=== PATIENT | female | born 1985 | race Caucasian/White ===

== ENCOUNTER → 2016-11-21 | Outpatient (CLI) | payer OTHER ==
--- NOTE | 2016-11-21 09:08 | CT ---
EXAMINATION TYPE: CT brain wo/w con DATE OF EXAM: 11/21/2016 9:00 AM COMPARISON: NONE HISTORY: Patient is having chronic left side headaches for two weeks. CT DLP: 1990 mGycm Automated exposure control for dose reduction was used. CONTRAST: CT scan of the head is performed without and with IV Contrast, patient injected with 100 mL of Omnipa que 300. FINDINGS: There is no abnormal enhancing mass or midline shift identified. The ventricles and sulci are within normal limits in size. The globes are intact and the visualized sinuses are clear. IMPRESSION: Negative contrast enhanced head CT exam.
== END | disposition home or self-care (01) ==
LOC: RADCTMAIN 07:58
PROVIDERS: ATTEND Internal Medicine
DX: G44.021 Chronic cluster headache, intractable (principal)
CPT/HCPCS: 70470; Q9967

== ENCOUNTER → 2019-12-27 | Outpatient (CLI) | payer OTHER ==
[2019-12-27 16:54] LABS: Follicle Stimulating Hormone 3.3 mIU/mL; Luteinizing Hormone 5.7 mIU/mL; Prolactin 5.8 ng/mL (2.8-29.2)
[2019-12-27 16:56] LABS: Thyroid Peroxidase Antibodies 606.9 U/mL (0.0-60.0)
[2019-12-27 20:33] LABS: ACTH 11.7 pg/mL (0.00-45.99)
== END | disposition home or self-care (01) ==
LOC: LABWHC1 09:23
PROVIDERS: ATTEND Internal Medicine Endocrinology, Diabetes & Metabolism
DX: R53.83 Other fatigue (principal)
CPT/HCPCS: 36415; 82024; 82533; 82607; 83001; 83002; 84146; 84305; 84439; 84443; 84481; 86376

== ENCOUNTER → 2020-02-02 | Outpatient (CLI) | payer OTHER | END | disposition home or self-care (01) | LOC: LABWHC1 09:25 | PROVIDERS: ATTEND Internal Medicine Endocrinology, Diabetes & Metabolism | DX: R94.6 Abnormal results of thyroid function studies (principal) | CPT/HCPCS: 36415; 84443 ==